=== PATIENT | female | born 1950 | race Two or more races ===

== ENCOUNTER 2021-05-20 13:05 | Inpatient (IN) | payer OTHER ==
[~2021-05-20] VITALS: Ht 160 cm; Wt 83.9 kg
[2021-05-20] MEDS ORDERED: CANDESARTAN-HC1 EAC1 PO (13:31)
[2021-05-21] MEDS ORDERED: OFLOXACIN5 ML (10:07)
[2021-05-21] MEDS ORDERED: METFORMIN HCL500 M1 (10:07)
[2021-05-21] MEDS ORDERED: BUMETANIDE1 MG (10:07)
[2021-05-25] MEDS ORDERED: SPIRONOLACTONE50 MG PO (12:26)
[2021-05-25] MEDS ORDERED: LASIX20 MG PO (12:26)
[2021-05-25] MEDS ORDERED: XOPENEX0.63 MG/3 IH (12:26)
[2021-05-25] MEDS ORDERED: PYRIDOXINE HCL100 MG PO (12:26)
[2021-05-25] MEDS ORDERED: ABANEU-SL TABL1 EACH SL (12:26)
[2021-05-25] MEDS ORDERED: PROTONIX40 MG PO (12:26)
[2021-05-25] MEDS ORDERED: PROTEINEX-18 LI30 ML PO (12:33)
== END 2021-05-25 13:18 | disposition home or self-care (01) | DRG 442 ==
LOC: ER 13:05 → SURH 17:50
PROVIDERS: ADMIT Internal Medicine Geriatric Medicine; ATTEND Internal Medicine Geriatric Medicine
PROC: 0W9G3ZX Drainage of Peritoneal Cavity, Percutaneous Approach, Diagnostic (ICD-10-PCS; principal; 2021-05-21)
PROC: BW2110Z Computerized Tomography (CT Scan) of Abdomen and Pelvis using Low Osmolar Contrast, Unenhanced and Enhanced (ICD-10-PCS; 2021-05-22)
PROC: 0DB98ZX Excision of Duodenum, Via Natural or Artificial Opening Endoscopic, Diagnostic (ICD-10-PCS; 2021-05-24)
PROC: 0DB78ZX Excision of Stomach, Pylorus, Via Natural or Artificial Opening Endoscopic, Diagnostic (ICD-10-PCS; 2021-05-24)
PROC: 0DB58ZX Excision of Esophagus, Via Natural or Artificial Opening Endoscopic, Diagnostic (ICD-10-PCS; 2021-05-24)
PROC: 3E0F7GC Introduction of Other Therapeutic Substance into Respiratory Tract, Via Natural or Artificial Opening (ICD-10-PCS; 2021-05-24)
DX: K75.4 Autoimmune hepatitis (principal); K74.69 Other cirrhosis of liver; J90 Pleural effusion, not elsewhere classified; K76.6 Portal hypertension; I85.00 Esophageal varices without bleeding; J45.21 Mild intermittent asthma with (acute) exacerbation; D69.6 Thrombocytopenia, unspecified; I11.9 Hypertensive heart disease without heart failure; K31.89 Other diseases of stomach and duodenum; K22.82 Esophagogastric junction polyp; R74.01 Elevation of levels of liver transaminase levels; D64.9 Anemia, unspecified; M79.89 Other specified soft tissue disorders; Z20.822 Contact with and (suspected) exposure to COVID-19; E11.9 Type 2 diabetes mellitus without complications; Z79.4 Long term (current) use of insulin

== ENCOUNTER 2021-07-17 14:49 | Emergency (ER) | payer OTHER ==
[~2021-07-17] VITALS: Ht 160 cm; Wt 77.1 kg
[~2021-07-17 14:49] MED LIST: ABANEU-SL TABL1 EACH SL; BUMETANIDE1 MG; CANDESARTAN-HC1 EAC1 PO; LASIX20 MG PO; METFORMIN HCL500 M1; OFLOXACIN5 ML; PROTEINEX-18 LI30 ML PO; PROTONIX40 MG PO; PYRIDOXINE HCL100 MG PO; SPIRONOLACTONE50 MG PO; XOPENEX0.63 MG/3 IH
== END 2021-07-17 20:34 | disposition home or self-care (01) ==
LOC: ER 14:49
DX: K74.60 Unspecified cirrhosis of liver (principal); Z88.8 Allergy status to other drugs, medicaments and biological substances

== ENCOUNTER 2021-08-25 14:07 | Emergency (ER) | payer OTHER ==
[~2021-08-25] VITALS: Ht 160 cm; Wt 75.7 kg
== END 2021-08-25 19:56 | disposition home or self-care (01) ==
LOC: ER 14:07
DX: R79.89 Other specified abnormal findings of blood chemistry (principal); K74.60 Unspecified cirrhosis of liver; R41.0 Disorientation, unspecified; Z20.822 Contact with and (suspected) exposure to COVID-19; Z88.8 Allergy status to other drugs, medicaments and biological substances; I10 Essential (primary) hypertension

== ENCOUNTER 2021-09-10 16:33 | Inpatient (IN) | payer OTHER ==
[~2021-09-10] VITALS: Ht 160 cm; Wt 78.0 kg
[2021-09-11] MEDS ORDERED: CANDESARTAN-HC1 EAC1 (08:06)
[2021-09-11] MEDS ORDERED: XIFAXAN550 MG (08:06)
[2021-09-11] MEDS ORDERED: URSODIOL500 MG (08:06)
[2021-09-11] MEDS ORDERED: ABANEU-SL TABL1 EACH (08:06)
[2021-09-14] MEDS ORDERED: XIFAXAN550 MG PO (13:07)
[2021-09-14] MEDS ORDERED: CEFADROXIL500 MG PO (13:07)
[2021-09-14] MEDS ORDERED: LASIX20 MG PO (13:08)
[2021-09-14] MEDS ORDERED: SPIRONOLACTONE50 MG PO (13:08)
[2021-09-14] MEDS ORDERED: PROTONIX40 MG PO (13:09)
[2021-09-14] MEDS ORDERED: LACTULOSE10 GM/152 PO (13:09)
[2021-09-14] MEDS ORDERED: PROTEINEX-18 LI30 ML PO (13:10)
== END 2021-09-14 15:16 | disposition home or self-care (01) | DRG 432 ==
LOC: ER 16:33 → SEC-K 18:59 → SURH 09-11 00:16
PROVIDERS: ADMIT Internal Medicine Geriatric Medicine; ATTEND Internal Medicine Geriatric Medicine
PROC: 0W9G3ZZ Drainage of Peritoneal Cavity, Percutaneous Approach (ICD-10-PCS; principal; 2021-09-12)
DX: K74.69 Other cirrhosis of liver (principal); K65.2 Spontaneous bacterial peritonitis; G93.49 Other encephalopathy; R18.8 Other ascites; E11.9 Type 2 diabetes mellitus without complications; I10 Essential (primary) hypertension; K76.89 Other specified diseases of liver; D64.89 Other specified anemias; E88.09 Other disorders of plasma-protein metabolism, not elsewhere classified; Z20.822 Contact with and (suspected) exposure to COVID-19

== ENCOUNTER 2022-05-18 19:16 | Inpatient (IN) | payer OTHER ==
[~2022-05-18] VITALS: Ht 160 cm; Wt 80.7 kg
[~2022-05-18 19:16] MED LIST changes: +ABANEU-SL TABL1 EACH; +CANDESARTAN-HC1 EAC1; +CEFADROXIL500 MG PO; +LACTULOSE10 GM/152 PO; +URSODIOL500 MG; +XIFAXAN550 MG; +XIFAXAN550 MG PO
--- NOTE | 2022-05-18 19:53 | NUR ---
FAMILIAR DE PACIENTE REFIERE, DOLOR ABDOMINAL, PARACENTESIS, Y FEVER DESDE HOY. PACIENTE SE MANTI[address]
--- NOTE | 2022-05-18 21:47 | NUR ---
PACIENTE EVALUADA POR DR CAMILO BECKIEN [place] [facility], SE LE ORIENTA A PACIENTE SOBRE EL MISMO Y VEBRALIZA ENTENDER, SE LE COLECTAN MUESTRAS DE LABORATORIO Y SE CANALZA BAJO MEDIDAS ASEPTICAS. SE ADM MED HUYEN ORDEN MEDICA.
--- NOTE | 2022-05-19 00:05 | NUR ---
PTE ALERTA Y ORIENTADA X3 EN COMPANIA DE FAMILIAR. SE COLOCA PTE EN CAMA CON ABARANDAS ELEVADAS CONECTADA A MONITOR CARDIACO Y OXIMETRIA. SE COLOCA EN POSICION SEMIFOWLER CON CANULA NASAL A 3L. PTE SE MANTIENE BAJO OBSERVACION POR CAMBIOS.
== END 2022-05-25 14:47 | disposition home or self-care (01) | DRG 82 ==
LOC: ER 19:16 → MEDJ 05-19 00:34
PROVIDERS: ADMIT Internal Medicine Geriatric Medicine; ATTEND Internal Medicine Geriatric Medicine
PROC: B020ZZZ Computerized Tomography (CT Scan) of Brain (ICD-10-PCS; principal; 2022-05-18)
PROC: B246ZZZ Ultrasonography of Right and Left Heart (ICD-10-PCS; 2022-05-19)
PROC: BW21Y0Z Computerized Tomography (CT Scan) of Abdomen and Pelvis using Other Contrast, Unenhanced and Enhanced (ICD-10-PCS; 2022-05-19)
PROC: B54DZZZ Ultrasonography of Bilateral Lower Extremity Veins (ICD-10-PCS; 2022-05-19)
PROC: 4A12X4Z Monitoring of Cardiac Electrical Activity, External Approach (ICD-10-PCS; 2022-05-19)
PROC: B44HZZZ Ultrasonography of Bilateral Lower Extremity Arteries (ICD-10-PCS; 2022-05-19)
PROC: 02HV33Z Insertion of Infusion Device into Superior Vena Cava, Percutaneous Approach (ICD-10-PCS; 2022-05-22)
PROC: 3E0F7GC Introduction of Other Therapeutic Substance into Respiratory Tract, Via Natural or Artificial Opening (ICD-10-PCS; 2022-05-22)
PROC: 0W9G3ZZ Drainage of Peritoneal Cavity, Percutaneous Approach (ICD-10-PCS; 2022-05-24)
DX: S06.2XAA Diffuse traumatic brain injury with loss of consciousness status unknown, initial encounter (principal); N18.6 End stage renal disease; R18.8 Other ascites; K76.6 Portal hypertension; I12.0 Hypertensive chronic kidney disease with stage 5 chronic kidney disease or end stage renal disease; N17.8 Other acute kidney failure; K76.82 Hepatic encephalopathy; D69.6 Thrombocytopenia, unspecified; D53.1 Other megaloblastic anemias, not elsewhere classified; E11.22 Type 2 diabetes mellitus with diabetic chronic kidney disease; K74.60 Unspecified cirrhosis of liver; B95.4 Other streptococcus as the cause of diseases classified elsewhere; R16.1 Splenomegaly, not elsewhere classified; W18.39XA Other fall on same level, initial encounter; Y93.01 Activity, walking, marching and hiking; Y92.098 Other place in other non-institutional residence as the place of occurrence of the external cause; Z20.822 Contact with and (suspected) exposure to COVID-19

== ENCOUNTER 2022-06-13 10:57 | Inpatient (IN) | payer OTHER ==
[~2022-06-13] VITALS: Ht 160 cm; Wt 82.6 kg
--- NOTE | 2022-06-13 11:13 | NUR ---
PACIENTE ALERTA Y ORIENTADA POR DARIAN, ACOMPANADA DE HIJA. ESTA REFIERE PACIENTE COMENZO CON TOS MARICRUZ, REFIERE ASMA DESDE EL KARENA Y HOY SANGRADO RECTAL.
[2022-06-13] MEDS ORDERED: MAGNESIUM200 MG (11:17)
[2022-06-21] MEDS ORDERED: URSODIOL500 MG PO (14:20)
[2022-06-21] MEDS ORDERED: MAGNESIUM200 MG PO (14:20)
[2022-06-21] MEDS ORDERED: FUROSEMIDE40 MG PO (14:20)
[2022-06-21] MEDS ORDERED: PROTONIX40 MG PO (14:20)
[2022-06-21] MEDS ORDERED: PROTEINEX-18 LI30 ML PO (14:20)
[2022-06-21] MEDS ORDERED: ABANEU-SL TABL1 EACH SL (14:20)
[2022-06-21] MEDS ORDERED: XIFAXAN550 MG PO (14:20)
[2022-06-21] MEDS ORDERED: LASIX20 MG PO (14:20)
[2022-06-21] MEDS ORDERED: LACTULOSE10 GM/152 PO (14:20)
[2022-06-21] MEDS ORDERED: SPIRONOLACTONE50 MG PO (14:20)
== END 2022-06-21 19:06 | disposition home or self-care (01) | DRG 433 ==
LOC: ER 10:57 → SEC-K 14:17 → SURH 14:17
PROVIDERS: ADMIT Internal Medicine Geriatric Medicine; ATTEND Internal Medicine Geriatric Medicine
PROC: 0W9G3ZZ Drainage of Peritoneal Cavity, Percutaneous Approach (ICD-10-PCS; principal; 2022-06-14)
PROC: B24BZZZ Ultrasonography of Heart with Aorta (ICD-10-PCS; 2022-06-14)
PROC: 30233N1 Transfusion of Nonautologous Red Blood Cells into Peripheral Vein, Percutaneous Approach (ICD-10-PCS; 2022-06-15)
PROC: B54NZZZ Ultrasonography of Left Upper Extremity Veins (ICD-10-PCS; 2022-06-15)
DX: K74.69 Other cirrhosis of liver (principal); K76.6 Portal hypertension; R18.8 Other ascites; K76.82 Hepatic encephalopathy; D64.9 Anemia, unspecified; Z20.822 Contact with and (suspected) exposure to COVID-19

== ENCOUNTER 2022-06-28 14:28 | Emergency (ER) | payer OTHER ==
[~2022-06-28] VITALS: Ht 154.9 cm; Wt 70.8 kg
[~2022-06-28 14:28] MED LIST changes: +FUROSEMIDE40 MG PO; +MAGNESIUM200 MG; +MAGNESIUM200 MG PO; +URSODIOL500 MG PO
== END 2022-06-28 19:08 | disposition home or self-care (01) ==
LOC: ER 14:28
DX: K76.82 Hepatic encephalopathy (principal); K74.60 Unspecified cirrhosis of liver; K83.09 Other cholangitis; R18.8 Other ascites; Z88.8 Allergy status to other drugs, medicaments and biological substances

== ENCOUNTER 2022-07-01 10:40 | Inpatient (IN) | payer OTHER ==
[~2022-07-01] VITALS: Ht 157.5 cm; Wt 77.1 kg
[2022-07-02] MEDS ORDERED: INTESTINEX680 M1 (08:31)
[2022-07-02] MEDS ORDERED: LACTULOSE10 GM/152 PO (13:48)
[2022-07-02] MEDS ORDERED: URSODIOL500 MG PO (13:48)
[2022-07-02] MEDS ORDERED: MAGNESIUM200 MG PO (13:48)
[2022-07-02] MEDS ORDERED: PROTONIX40 MG PO (13:48)
[2022-07-02] MEDS ORDERED: SPIRONOLACTONE50 MG PO (13:48)
[2022-07-02] MEDS ORDERED: XIFAXAN550 MG PO (13:48)
[2022-07-02] MEDS ORDERED: FUROSEMIDE40 MG PO (13:48)
[2022-07-02] MEDS ORDERED: PROTEINEX-18 LI30 ML PO (13:48)
== END 2022-07-02 15:17 | disposition home or self-care (01) | DRG 434 ==
LOC: ER 10:40 → MEDJ 16:12
PROVIDERS: ADMIT Internal Medicine Geriatric Medicine; ATTEND Internal Medicine Geriatric Medicine
DX: K74.3 Primary biliary cirrhosis (principal); D69.6 Thrombocytopenia, unspecified; Z20.822 Contact with and (suspected) exposure to COVID-19; E88.09 Other disorders of plasma-protein metabolism, not elsewhere classified; E80.6 Other disorders of bilirubin metabolism

== ENCOUNTER 2022-07-14 10:19 | Inpatient (IN) | payer OTHER ==
[~2022-07-14] VITALS: Ht 165.1 cm; Wt 56.7 kg
[~2022-07-14 10:19] MED LIST changes: +INTESTINEX680 M1
[2022-07-14] MEDS ORDERED: FUROSEMIDE20 MG PO (10:39)
[2022-07-14] MEDS ORDERED: ENULOSE10 GM/15 M (10:39)
[2022-07-14] MEDS ORDERED: ABANEU-SL TABL1 EACH SL (10:40)
[2022-07-14] MEDS ORDERED: ALDACTONE100 MG PO (10:41)
[2022-07-14] MEDS ORDERED: INTESTINEX680 M1 PO (10:41)
[2022-07-14] MEDS ORDERED: URSO250 MG (10:41)
[2022-07-14] MEDS ORDERED: NEURIVA DE-STR1 EACH PO (10:41)
[2022-07-14] MEDS ORDERED: PROTEINEX LIQU473 ML PO (10:42)
--- NOTE | 2022-07-14 10:45 | NUR ---
SE RECIBE PACIENTE EN AMBULANCIA, HIPOACTIVA. CUIDADORA REFIERE QUE DR. GAMEZ REFIERE A PACIENTE A PASAR POR FAHAD DE EMERGENCIA POR COLOR AMARILLO EN LA PIEL, LIQUIDO ABDOMINAL Y EN LAS EXTREMIDADES.
[2022-07-22] MEDS ORDERED: XIFAXAN550 MG PO (11:42)
[2022-07-22] MEDS ORDERED: ALDACTONE100 MG PO (11:42)
[2022-07-22] MEDS ORDERED: PRE PROTEIN1 EACH PO (11:43)
[2022-07-22] MEDS ORDERED: LASIX20 MG PO (11:43)
[2022-07-22] MEDS ORDERED: LASIX40 MG PO (11:44)
[2022-07-22] MEDS ORDERED: PANTOPRAZOLE SO40 MG PO (11:44)
[2022-07-22] MEDS ORDERED: LACTULOSE10 GM/152 PO (11:44)
[2022-07-22] MEDS ORDERED: URSODIOL500 MG PO (11:45)
[2022-07-22] MEDS ORDERED: ABANEU-SL TABL1 EACH SL (11:46)
[2022-07-22] MEDS ORDERED: FUROSEMIDE20 MG PO (12:34)
== END 2022-07-23 07:46 | disposition home or self-care (01) | DRG 441 ==
LOC: ER 10:19 → SURH 11:16
PROVIDERS: ADMIT Colon & Rectal Surgery; ATTEND Colon & Rectal Surgery
PROC: 0W9G3ZZ Drainage of Peritoneal Cavity, Percutaneous Approach (ICD-10-PCS; principal; 2022-07-17)
PROC: 02HV33Z Insertion of Infusion Device into Superior Vena Cava, Percutaneous Approach (ICD-10-PCS; 2022-07-17)
PROC: 30233N1 Transfusion of Nonautologous Red Blood Cells into Peripheral Vein, Percutaneous Approach (ICD-10-PCS; 2022-07-17)
DX: K76.82 Hepatic encephalopathy (principal); K76.7 Hepatorenal syndrome; N18.6 End stage renal disease; E87.1 Hypo-osmolality and hyponatremia; N17.8 Other acute kidney failure; I12.0 Hypertensive chronic kidney disease with stage 5 chronic kidney disease or end stage renal disease; R18.8 Other ascites; D63.1 Anemia in chronic kidney disease; E87.5 Hyperkalemia; E86.0 Dehydration; K74.69 Other cirrhosis of liver; E87.79 Other fluid overload; Z20.822 Contact with and (suspected) exposure to COVID-19